=== PATIENT | male | born 1980 | race Caucasian/White ===

== ENCOUNTER 2017-01-24 20:56 | Emergency (ER) | payer MEDICAID, SELFPAY ==
[~2017-01-24] VITALS: Ht 175.3 cm; Wt 56.7 kg
[2017-01-24] MEDS ORDERED: Aleve (21:52)
[2017-01-24] MEDS ORDERED: IBUP600T26 PO (22:57)
[2017-01-24] MEDS ORDERED: CYCL10TA PO (22:57)
[2017-01-24] MEDS ORDERED: CYCLOBENZAPRINE 10 MG TAB PO ONE (23:00)
[2017-01-24] MEDS ORDERED: IBUPROFEN 600 MG TAB PO ONE (23:00)
[2017-01-24 23:09] VITALS: BP 112/74
== END 2017-01-24 23:10 | disposition home or self-care (01) ==
LOC: M ED 22:30
DX: S46.911A Strain of unspecified muscle, fascia and tendon at shoulder and upper arm level, right arm, initial encounter (principal); F17.210 Nicotine dependence, cigarettes, uncomplicated; X58.XXXA Exposure to other specified factors, initial encounter; Y92.89 Other specified places as the place of occurrence of the external cause; Y93.89 Activity, other specified; Y99.9 Unspecified external cause status